=== PATIENT | male | born 1960 | race Caucasian/White ===

== ENCOUNTER 2023-03-21 21:14 | Emergency (ER) | payer MEDICAID, SELFPAY ==
--- NOTE | ~2023-03-21 | CT_ITS ---
EXAMINATION: CT HEAD WITHOUT CONTRAST CLINICAL INFORMATION: Scalp laceration. COMPARISON: 01/31/2010 TECHNIQUE: Multidetector volumetric imaging of the head was performed without intravenous contrast material. This CT examination was performed using dose optimization techniques as appropriate, variously including the following: *Automated exposure control *Adjustment of mA and/or kV according to patient size (this includes techniques or standardized protocols for targeted exams where dose is matched to indication/reason for exam; i.e. extremities or head) *Use of iterative reconstruction technique Dose: 657 mGy-cm FINDINGS: There is no evidence of acute intracranial hemorrhage or territorial infarction. No abnormal mass-effect or midline shift is seen. Orta to white matter differentiation is well preserved. No extra axial fluid collections. The ventricles are normal in size and configuration. There is no abnormal attenuation within the brain parenchyma. No acute osseous findings. There is a shallow scalp laceration over the right parietal bone in the parasagittal region. No appreciable hematoma. Mild mucosal thickening in the ethmoid sinuses. CT/CT head/brain wo IV con IMPRESSION: No acute intracranial pathology. Shallow right parietal scalp laceration. No acute osseous findings.
[2023-03-21 21:34] VITALS: BP 148/93; PULSE 99; RESP 18; TEMP 36.7; O2SAT 93; BMI 29.8
--- NOTE | 2023-03-21 22:50 | ED.HEATRA ---
HPI - Head Injury General Chief complaint: Head Injury Stated complaint: hit head on shelf, split Time Seen by Provider: 03/21/23 22:14 Source: patient Mode of arrival: ambulatory Limitations: language barrier History of Present Illness HPI Narrative: Patient is a 62 year old male who presents emergency department his for evaluation of a laceration to the scalp after head injury. He states he was doing laundry when he stood up suddenly and struck his head on a shelf above that was metal sustaining laceration. He denies any loss of consciousness or use of anticoagulants. He does report a headache. No active bleeding. Last tetanus in 2018. Denies dizziness, lightheadedness, vision changes, neck pain, neck stiffness, numbness or tingling of the extremities Related Data Allergies Allergy/AdvReac Type Severity Reaction Status Date / Time No Known Allergies Allergy Unverified 11/07/19 16:20 Review of Systems Review of Systems: Yes all other systems are reviewed and are negative PMFSH Past Medical History Attestation statement: The following information was validated with the patient. Source: old records reviewed Social History Social History Advance Directives: No Advance Directives Information Provided: No Physical Exam Vital Signs: Vital Signs: Last Vital Signs Temp 98.0 F 03/21/23 21:34 Pulse 99 03/21/23 21:34 Resp 18 03/21/23 21:34 BP 148/93 H 03/21/23 21:34 Pulse Ox 93 03/21/23 21:34 O2 Del Method Room Air 03/21/23 21:34 BMI result Body Mass Index 29.8 Appearance: Alert.?Oriented to person, place and time. No acute distress.?Normal affect. Head: Normocephalic parietal scalp lack 8 cm, linear, edges well approximated, scant active bleeding Eyes: Pupils equal, round and reactive to light. EOMI. Conjunctiva and sclera normal? No Hamilton sign noted. No raccoon eyes noted ENT: No septal hematoma, nares patent bilaterally. External auditory canal normal tympanic membrane pearly chaney and intact bilaterally. Dentition normal, no fractured teeth. No lesions or lacerations of oropharynx. Uvula midline. Moist mucous membranes. Neck: Normal inspection.? Neck supple.??No palpable tenderness, step-off, deformities. CVS: Heart sounds normal. Normal heart rate and rhythm.? Pulses normal.?? Respiratory: No respiratory distress.? Lung sounds clear to auscultation bilaterally?? Abdomen: Soft and non-tender. Normoactive bowel sounds. ?? Skin: Skin warm and dry.? Normal skin color.? Normal skin turgor.?? Extremities: No lower extremity edema.? Neuro: Moves all extremities spontaneously. Sensation intact bilaterally. CN II-XII intact. No focal neuro deficits. Medications Administered Discontinued Medications Generic Name Dose Route Start Last Admin Trade Name Freq PRN Reason Stop Dose Admin Diphtheria/Tetanus/Acell Pertussis 0.5 ml 03/21/23 22:51 03/21/23 23:03 Diphth,Pertus(Acell),Tet Adult 0.5 Ml Syringe IM 03/21/23 22:52 0.5 ml .ONCE ONE Administration Medical Decision Making Medical Decision Making MDM Narrative: Patient is a 62-year-old male who presents emergency department for evaluation after head injury with laceration to the scalp as per HPI/physical exam portion of this note. No focal neurological deficits upon examination, CT of the head reveals no acute intracranial abnormality. Tdap was updated. Scalp laceration repair with isiah, please see procedural portion of this note. Discussed strict return precautions, worrisome signs and symptoms that would warrant re-evaluation, stable for discharge. Differential Diagnosis Differential Diagnoses: The differential diagnosis associated with the presentation includes (Laceration, uncontrolled bleeding, hematoma, SDH, ICH, fracture) Admission/Observation Consideration of admission/observation: Escalation of care including admission/observation considered (See narrative above) Independent Interpretation I performed an independent interpretation of an: CT Scan Radiology Impression Discussion of test interpretation with radiology: I have reviewed the radiologist's reading. Radiologist Impression: CT/CT head/brain wo IV con IMPRESSION: No acute intracranial pathology. Shallow right parietal scalp laceration. No acute osseous findings. Independent Historian Clinical information obtained from an independent historian. History obtained from or confirmed by: Spouse (Present who confirms history) External Record Review External record reviewed: Outpatient record Prescription Management I considered prescription management with: Pain Medication (Acetaminophen/ibuprofen) Procedures Laceration Laceration 1: Site: scalp Size (cm): 8 Description: linear Depth: simple, single layer Pre-repair: wound explored, irrigated extensively and deep structures intact Skin layer closed with: other ([place]; 6) Discharge Plan Discharge Clinical Impression: Acute head injury without loss of consciousness Qualifiers: Encounter type: initial encounter Qualified Code(s): S09.90XA - Unspecified injury of head, initial encounter Laceration of scalp Qualifiers: Encounter type: initial encounter Qualified Code(s): S01.01XA - Laceration without foreign body of scalp, initial encounter Patient Disposition: Home, Self-Care Instructions: Laceration (ED), Head Injury (ED) Additional Instructions: Six isiah will need to be removed from the scalp in 7-10 days. You may contact your primary care provider to schedule follow-up for removal or return back to emergency department for removal. You can take ibuprofen 200 mg, 3 tablets (600mg) every 6-8 hours as needed for pain, in addition to Tylenol 500 mg, 2 tablets (1,000mg) every 4-6 hours as needed for pain, but not to exceed 3 doses daily (3,000mg).? Return back to emergency department any new or worsening symptoms or concerns such as severe worsening headache, persistent dizziness/light headedness, nausea with persistent vomiting, confusion, unsteady walking. Referrals: Lilli Brady MD [Primary Care Provider] -
[2023-03-21] MEDS: Diphth,Pertus(ACell),Tet Adult 0.5 ML SYRINGE IM (23:03)
--- NOTE | 2023-03-21 23:06 | PC.NURSE ---
tdap given left deltoid, VIS given, pt tolerated well.
[2023-03-22 00:30] VITALS: BP 153/81; PULSE 81; RESP 18; TEMP 36.5; O2SAT 97
[2023-03-22] MEDS: Acetaminophen 325 MG TABLET 975 MG PO (00:31)
== END 2023-03-22 00:34 | disposition home or self-care (01) ==
PROVIDERS: Emergency Provider Emergency Medicine; PCP Internal Medicine
DX: S00.01XA Abrasion of scalp, initial encounter (principal); R51.9 Headache, unspecified; Y29.XXXA Contact with blunt object, undetermined intent, initial encounter; Y93.E2 Activity, laundry; Y92.009 Unspecified place in unspecified non-institutional (private) residence as the place of occurrence of the external cause; Y99.8 Other external cause status; Z23 Encounter for immunization
CPT/HCPCS: 12034; 70450; 90471; 90715; 99283; 99284

== ENCOUNTER 2023-03-28 12:07 | Emergency (ER) | payer MEDICAID, SELFPAY ==
[2023-03-28 12:38] VITALS: BP 128/89; PULSE 95; RESP 18; TEMP 37.1; O2SAT 96
--- NOTE | 2023-03-28 12:38 | ED.GENADULT ---
HPI - General Adult General Chief complaint: General Medical Stated complaint: Suture Removal Time Seen by Provider: 03/28/23 12:43 Source: patient Mode of arrival: ambulatory Limitations: no limitations History of Present Illness HPI narrative: Isiah placed to head on March 21. Here for removal. No complaints. Related Data Allergies Allergy/AdvReac Type Severity Reaction Status Date / Time No Known Allergies Allergy Verified 03/28/23 12:39 Review of Systems Review of Systems: Yes all other systems are reviewed and are negative Constitutional: Constitutional: Reports no additional constitutional complaints, Denies body ache(s), Denies chills, Denies fever(s), Denies headache(s) and Denies weakness Eyes: Eyes: Reports no additional eye complaints and Denies change in vision ENT: Reports system reviewed and no additional complaints, except as documented, Denies dizziness, Denies headache(s), Denies nasal congestion, Denies nasal discharge and Denies neck pain Cardiovascular: Cardiovascular: Reports no additional cardiovascular complaints, Denies chest pain, Denies leg edema and Denies dyspnea Respiratory: Respiratory: Reports no additional respiratory complaints, Denies cough and Denies dyspnea Gastrointestinal: Gastrointestinal: Reports no additional gastrointestinal complaints, Denies abdominal pain, Denies diarrhea, Denies nausea and Denies vomiting Genitourinary: Genitourinary: Denies urinary incontinence Musculoskeletal: Musculoskeletal: Reports no additional musculoskeletal complaints, Denies back pain, Denies arthralgias, Denies joint swelling, Denies neck pain, Denies numbness and Denies tingling Integumentary/Breasts: Skin/Breast: Reports system reviewed and no additional complaints, except as docu and Denies rash Neurologic: Reports system reviewed and no additional complaints, except as documented, Denies dizziness, Denies headache(s), Denies numbness, Denies tingling and Denies weakness [facility] Past Medical History Attestation statement: The following information was validated with the patient. Source: old records reviewed and nursing notes reviewed Social History Social History Advance Directives: No Physical Exam ED Vital Signs: Vital Signs - 24 hr 03/28/23 12:38 Temperature 98.8 F Pulse Rate 95 Respiratory Rate 18 Blood Pressure 128/89 Pulse Oximetry 96 Oxygen Delivery Method Room Air BMI result Body Mass Index 30.0 Const General: cooperative, healthy appearing, comfortable and no acute distress Orientation/consciousness: patient oriented x3 Limitations: no limitations HENMT Head: Yes normal to inspection Head images: 1. [place] present #6. Edges approximated . no redness/drainage/swelling noted Eyes General: appearance normal, both eyes and all related structures Neck Neck: Yes normal visual inspection Chest Chest palpation & inspection: normal inspection of the chest Resp Effort & Inspection: normal respiratory effort Skin General skin exam: no rashes or lesions noted Neuro General: patient oriented x3 and moves all extremities Cognition (Neuro): normal cognition Gait exam (Neuro): Normal gait present Procedures Procedure Narrative Procedure Narrative: 6 isiah removed from right scalp-edges approximate, patient tolerated well, no signs of infection Medical Decision Making Medical Decision Making MDM Narrative: [place] placed to head on March 21. Here for removal. No complaints. Site is normal with no signs of infection-see procedure note for removal Differential Diagnosis Differential Diagnoses: The differential diagnosis associated with the presentation includes staple removal wound infection External Record Review External record reviewed: Outside ED record Prescription Management I considered prescription management with: Antibiotic Discharge Plan Discharge Clinical Impression: Removal of isiah Patient Disposition: Home, Self-Care Instructions: Stitches Removal (ED) Referrals: Lilli Brady MD [Primary Care Provider] - 1 week Interventions: ED Discharge Assessment Last Done: 03/28/23 12:45 Discharge Date/Time: 03/28/23 12:46
== END 2023-03-28 12:46 | disposition home or self-care (01) ==
LOC: HO.ED 12:45
PROVIDERS: Emergency Provider Emergency Medicine; PCP Internal Medicine
DX: Z48.02 Encounter for removal of sutures (principal)
CPT/HCPCS: 99282

== ENCOUNTER 2023-04-27 14:54 | Outpatient (REF) | payer MEDICARE, MEDICAID, SELFPAY ==
--- NOTE | ~2023-04-27 | XR_ITS ---
EXAMINATION: XR HIP, RIGHT CLINICAL INFORMATION: Right hip pain. COMPARISON: CT abdomen and pelvis of January 17, 2022. TECHNIQUE: Two views of the right hip. FINDINGS: Redemonstration of sclerotic focus overlying the intertrochanteric region, possibly a bone island. Small calcifications in the right hemipelvis are likely vascular. Moderate degenerative changes in the right hip with loss of the joint space. Mild degenerative changes in the right sacroiliac joint. XR/XR hip RT min 2V IMPRESSION: 1. Moderate degenerative changes in the right hip. 2. Redemonstration of sclerotic focus overlying the intertrochanteric region, possibly a bone island. 3. Additional imaging with CT scan or MRI should be considered for better visualization if there is clinical concern for fracture or other underlying pathology.
== END 2023-04-27 14:55 | disposition home or self-care (01) ==
LOC: HO.XRAY 14:54
PROVIDERS: PCP Internal Medicine; Visit Provider Internal Medicine
DX: M25.551 Pain in right hip (principal)
CPT/HCPCS: 73502

== ENCOUNTER 2023-04-28 08:42 | Outpatient (REF) | payer MEDICARE, MEDICAID, SELFPAY ==
[2023-04-28 15:08] LABS: MANUAL DIFF FLAG NO
[2023-04-28 15:20] LABS: Basophils Absolute Auto 0.1 X10*3/uL (0.0-0.2); Basophils Percent Auto 0.9 % (0-2); Eosinophils Absolute Auto 0.2 X10*3/uL (0.0-0.4); Eosinophils Percent Auto 3.5 % (0-4); Hematocrit 44.9 % (42.0-52.0); Imm Gran Abs Auto 0.01 X10*3/uL (0.00-0.03); Imm Gran Pct Auto 0.2 % (0.0-0.4); Lymphocytes Absolute Auto 2.4 X10*3/uL (1.2-4.9); Lymphocytes Percent Auto 42.5 % (20-40); Mean Corpuscular HGB Conc 33.4 g/dl (31.0-36.0); Mean Corpuscular Hemoglobin 31.4 pg (27.0-33.0); Mean Corpuscular Volume 93.9 fL (80.0-98.0); Monocytes Absolute Auto 0.8 X10*3/uL (0.1-1.2); Monocytes Percent Auto 13.7 % (2-11); Neutrophils Absolute Auto 2.2 x10*3/uL (2.0-8.3); Neutrophils Percent Auto 39.2 % (45-73); Platelet Count 211 X10*3/uL (160-400); Red Blood Count 4.78 X10*6/uL (4.60-5.80); Red Cell Distribution Width 13.3 % (11.0-16.0); White Blood Count 5.7 X10*3/uL (4.8-10.8)
[2023-04-28 15:56] LABS: Alanine Aminotransferase 28 U/L (0-40); Albumin Level 4.1 g/dL (3.5-5.0); Alkaline Phosphatase 49 U/L (39-117); Anion Gap 10 (12-20); Aspartate Amino Transferase 23 U/L (5-37); Bilirubin Total 0.7 mg/dL (0.0-1.0); Blood Urea Nitrogen 12 mg/dL (9-16); Calcium 9.4 mg/dL (8.4-10.2); Carbon Dioxide 29 mmol/L (22-29); Chloride 104 mmol/L (96-108); Cholesterol 202 mg/dL (<200); Estimated Glomerular Filt Rate > 60; Glucose Random 63 mg/dL (60-115); HDL Cholesterol 59 mg/dL (>40); LDL Cholesterol Calculated 119 mg/dL (<100); Sodium 139 mmol/L (135-145); Total Protein 7.6 g/dL (6.5-8.0); Triglycerides 122 mg/dL (<150)
[2023-04-28 16:11] LABS: TSH reflex Free T4 3.96 uIU/mL (0.32-4.0)
== END 2023-04-28 08:43 | disposition home or self-care (01) ==
LOC: HO.CHCLDS 08:42
PROVIDERS: Visit Provider Internal Medicine
DX: Z00.00 Encounter for general adult medical examination without abnormal findings (principal); E78.00 Pure hypercholesterolemia, unspecified; K52.9 Noninfective gastroenteritis and colitis, unspecified; K76.0 Fatty (change of) liver, not elsewhere classified
CPT/HCPCS: 36415; 80053; 80061; 84443; 85025

== ENCOUNTER 2024-05-07 15:22 | Outpatient (REF) | payer MEDICARE, MEDICAID, SELFPAY ==
[2024-05-07 18:40] LABS: MANUAL DIFF FLAG NO
[2024-05-07 19:06] LABS: Basophils Absolute Auto 0.1 X10*3/uL (0.0-0.2); Basophils Percent Auto 0.8 % (0-2); Eosinophils Absolute Auto 0.1 X10*3/uL (0.0-0.4); Hematocrit 43.7 % (42.0-52.0); Hemoglobin 14.6 g/dl (14.0-18.0); Imm Gran Abs Auto 0.01 X10*3/uL (0.00-0.03); Imm Gran Pct Auto 0.2 % (0.0-0.4); Lymphocytes Absolute Auto 2.1 X10*3/uL (1.2-4.9); Lymphocytes Percent Auto 33.3 % (20-40); Mean Corpuscular HGB Conc 33.4 g/dl (31.0-36.0); Mean Corpuscular Hemoglobin 30.5 pg (27.0-33.0); Mean Corpuscular Volume 91.2 fL (80.0-98.0); Mean Platelet Volume 11.1 fL (9.4-12.4); Monocytes Absolute Auto 0.9 X10*3/uL (0.1-1.2); Monocytes Percent Auto 14.4 % (2-11); Neutrophils Absolute Auto 3.1 x10*3/uL (2.0-8.3); Neutrophils Percent Auto 49.3 % (45-73); Platelet Count 219 X10*3/uL (160-400); Red Blood Count 4.79 X10*6/uL (4.60-5.80); White Blood Count 6.4 X10*3/uL (4.8-10.8)
[2024-05-07 19:29] LABS: Alanine Aminotransferase 31 U/L (0-40); Albumin Level 4.2 g/dL (3.5-5.0); Alkaline Phosphatase 50 U/L (39-117); Anion Gap 13 (12-20); Aspartate Amino Transferase 29 U/L (5-37); Bilirubin Total 0.4 mg/dL (0.0-1.0); Blood Urea Nitrogen 18 mg/dL (9-16); Calcium 9.5 mg/dL (8.4-10.2); Carbon Dioxide 26 mmol/L (22-29); Chloride 105 mmol/L (96-108); Cholesterol 190 mg/dL (<200); Estimated Glomerular Filt Rate > 60; Glucose Random 98 mg/dL (60-115); HDL Cholesterol 57 mg/dL (>40); LDL Cholesterol Calculated 93 mg/dL (<100); Potassium 4.1 mmol/L (3.3-5.1); Sodium 140 mmol/L (135-145); Total Protein 8.4 g/dL (6.5-8.0); Triglycerides 204 mg/dL (<150)
[2024-05-08 08:46] LABS: ~HepC Num1 0.13 S/CO (0.00-0.79); ~Hepatitis C Antibody Nonreactive (Nonreactive)
== END 2024-05-07 15:23 | disposition home or self-care (01) ==
LOC: HO.CHCLDS 15:22
PROVIDERS: Visit Provider Internal Medicine
DX: I10 Essential (primary) hypertension (principal); E78.00 Pure hypercholesterolemia, unspecified; Z12.5 Encounter for screening for malignant neoplasm of prostate
CPT/HCPCS: 36415; 80053; 80061; 84153; 84443; 85025; 86803

== ENCOUNTER 2025-01-13 13:29 | Outpatient (REF) | payer MEDICARE, MEDICAID, SELFPAY ==
--- NOTE | ~2025-01-13 | XR_ITS ---
EXAMINATION: XR CHEST CLINICAL INFORMATION: 64 y.o male with chornic cough COMPARISON: None available. TECHNIQUE: 2 views of the chest were obtained. FINDINGS: No significant abnormality is noted involving the heart, lungs, mediastinum, bony thorax or soft tissues. XR/XR chest 2V IMPRESSION: No acute disease Electronically signed by: Jesse Mccord MD 01/13/2025 03:20 PM [facility]
--- OUTSIDE RECORDS SUMMARY | 2025-01-13 13:00 | XMS_ITS | Encounter Summary ---
Author Organization [employer] Address [address] [facility] 7 [place] [address] Care Team Providers Care Evp Operations Name Role Phone Lilli Brady MD Primary Care Provider [phone] Reason for Visit * Reason Comments sick sick Encounter Details Date Type Department Care Team ([facility] st Contact Info) Description 01/13/2025 1:00 PM EST Office Visit [facility] MED[facility] [address] [place], [place] [id number] [facility] [address] [place] [address] Allergic cough (Primary Dx); Chronic cough Social History Tobacco Use Types Packs/Day Years Used Date Smoking Tobacco: Never Passive Smoke Exposure: Never Smokeless Tobacco: Never Tobacco Cessation:Counseling Given: Not Answered Alcohol Use Standard Drinks/Week Comments Never 0 (1 standard drink = 0.6 oz pur e alcohol) Depression Answer Date Recorded Patient Health Questionnaire-9 Score 0 05/07/2024 Patient Health Questionnaire-9 Score 0 05/07/2024 Last PHQ-9: Questionnaire Data Not on file 0 05/07/2024 Housing Stability Answer Date Recorded What is your housing situation today? I have litzy wheeler 05/07/[address] you li ve. Do you have problems with any of the following? None of the above 05/07/2024 Food Insecurity Answer Date Recorded Within the past 12 months, y ou worried that your food would run out before you got money to buy more: Never True 05/07/2024 Within the past 12 months,th e food you bought just didn't last and you didn't have enough money to get more: Never True Transportation Answer Date Recorded In the past 12 months, has l ack of transportation kept you from medical appts, meetings, work or from getting things needed for daily living? No 05/07/2024 Utilities Answer Date Recorded In the past 12 months, has t he electric, gas, oil or water company threatened to shut off services in your home? No 05/07/2024 Depression Answer Date Recorded Patient Health Questionnaire-2 Score 0 05/07/2024 Internet Access Answer Date Recorded Internet Access Q1 Yes 05/07/2024 Internet Access Q2 Not on file 05/07/2024 Sex and Gender Information Value Date Recorded Sex Assigned at Male 12/20/2021 10:19 AM EDT Legal Sex Male 10:19 AM EDT Gender Identity Male 12/20/2021 10:19 AM EDT Sexual Orientation Straight 12/20/2021 10 :19 AM EDT documented as of this encounter Last Filed Vital Signs Vital Sign Reading Time Taken Comments Blood Pressure 130/88 01/13/2025 12:59 PM EST Pulse 98 01/13/2025 12:59 PM EST Temperature 36.4 C (97.6 F) 01/13/2025 12:59 PM EST Respiratory Rate 20 01/13/2025 12:59 PM EST Oxygen Saturation 97% 01/13/2025 12:59 PM EST Inhaled Oxygen Concentration - - Weight 95.9 kg (211 lb 6.4 oz) 01/13/2025 12:59 PM EST Height 175.3 cm (5' 9 ) 01/13/2025 12:59 PM EST Body Mass Index 31.22 01/13/2025 12:59 PM EST documented in this encounter Plan of Treatment Upcoming Encounters Date Type Department Care Team (Late st Contact Info) Description 06/23/2025 1:30 PM EDT Office Visit [facility] D[facility] [address] [place] [address] [facility] [address] [place] [address] documented as of this encounter Procedures Procedure Name Priority Date/Time Associated Diagnosis Comments XR CHEST 2 VIEWS Routine 01/13/2025 2:38 PM EST Chronic cough documented in this encounter Results * XR Chest 2 Views (01/13/2025 2:38 PM EST) Anatomical Region Laterality Modality Chest Radiographic Codi ging 01/13/2025 2:38 PM EST Narrative 01/13/2025 3:23 PM EST [address] [address] XRay Report Signed Patient: Jensen Davis MR#: [id number] : 1960 Acct:[id number] Age/Sex: 64 / M ADM Date: 01/13/25 Loc: [facility] Attending Dr: Charleen ESCOTOP Ordering Physician: Charleen Bear Date of Service: 01/13/25 Procedure(s): XR chest 2V Accession Number(s): [id number] cc: Lilli Brady MD; HosfordCharleen WIND INSTRUMENT REPAIRER Reason for Exam: 64 y.o male with chornic cough EXAMINATION: XR CHEST CLINICAL INFORMATION: 64 y.o male with chornic cough COMPARISON: None available. TECHNIQUE: 2 views of the chest were obtained. FINDINGS: No significant abnormality is noted involving the heart, lungs, mediastinum, bony thorax or soft tissues. XR/XR chest 2V IMPRESSION: No acute disease Electronically signed by: Jesse Mccord MD 01/13/2025 03:20 PM EST Dictated By: Jesse Mccord MD Signed By: <Electronically signed by Jesse Mccord MD in OV> 01/13/25 1520 DD/ 1438 TD/TT: 01/13/25 1500 Braided Band Assembler: Procedure Note Donotuseinterpreter, Image - 01/13/2025 [facility] [address] [place] [address] XRay Report Signed Patient: Jensen DavisMR#: [id number] : 1960cct:[id number] Age/Sex: 64 / MADM Date: 01/13/25 Loc: [facility] Attending Dr: Charleen Bear WIND INSTRUMENT REPAIRER Ordering Physician: [facility] Date of Service: 01/13/25 Procedure(s): XR chest 2V Accession Number(s): [id number] cc: Lilli Brady MD; [facility] Reason for Exam: 64 y.o male with chornic cough EXAMINATION: XR CHEST CLINICAL INFORMATION: 64 y.o male with chornic cough COMPARISON: None available. TECHNIQUE: 2 views of the chest were obtained. FINDINGS: No significant abnormality is noted involving the heart, lungs, mediastinum, bony thorax or soft tissues. XR/XR chest 2V IMPRESSION: No acute disease Electronically signed by: Jesse Mccord MD 01/13/2025 03:20 PM EST RP Dictated By: Jesse Mccord MD Signed By: <Electronically signed by Jesse Mccrod MD in OV> 01/13/25 1520 DD/ 1438 TD/TT: 01/13/25 1500 Braided Band Assembler: [facility] IMG XR PROCEDURES Final Resul t documented in this encounter Visit Diagnoses Diagnosis Allergic cough- Primary Cough Chronic cough Cough documented in this encounter Additional Health Concerns Assessment Noted Time PHQ-9 Depression Total Score: 0 05/08/19 2:53 PM EDT documented as of this encounter Care Teams Evp Operations Relationship Specialty Start Date End Date Lilli Brady MD [address] [place] [address] PCP - General Internal Medicine 03/30/17 documented as of this encounter
--- OUTSIDE RECORDS SUMMARY | 2025-01-13 18:13 | XMS_ITS | Encounter Summary ---
Author Organization [employer] Address [address] [facility] 7t [place] [address] Care Team Providers Care Rn Mobile Name Role Phone Lilli Brady MD Primary Care Provider [phone] Encounter Details Date Type Department Care Team (Latest Contact Info) Description 01/13/2025 Travel Social History Tobacco Use Types Packs/Day Years Used Date Smoking Tobacco: Never Passive Smoke Exposure: Never Smokeless Tobacco: Never Alcohol Use Standard Drinks/Week Comments Never 0 [...] AM EDT documented as of this encounter Plan of Treatment Upcoming Encounters Date Type Department Care Team (Late st Contact Info) Description 06/23/2025 1:30 PM EDT Office Visit [facility] ADULT D[facility] [address] [place] [address] Dru, Luiza [address] [place] [address] documented as of this encounter Visit Diagnoses Not on filedocumented in this encounter Additional Health Concerns Assessment Noted Time PHQ-9 Depression Total Score: 0 05/08/19 25 2:53 PM EDT documented as of this encounter Care Teams Rn Mobile Relationship Specialty Start Date End Date Lilli Brady MD [address] [place] [address] PCP - General Internal Medicine 03/30/17 documented as of this encounter
--- OUTSIDE RECORDS SUMMARY | 2025-01-13 18:13 | XMS_ITS | Encounter Summary ---
Author Organization [employer] Address [address] [place] [address] 7 [place] [address] Care Team Providers Care Machine Precision Engraver Name Role Phone Lilli Brady MD Primary Care Provider Encounter Details Date Type Department Care Team (Latest Contact Info) Description 01/10/2020 Abstract [facility] CONVERSIONS Dental, Provider, DDS Social History Tobacco Use Types Packs/Day Years Used Date Smoking Tobacco: Never Assessed Sex and Gender Information Value Date Recorded Sex Assigned at Male 12/20/2021 10:19 AM EDT Legal Sex Male 10:19 AM EDT Gender Identity Male 12/20/2021 10:19 AM EDT Sexual Orientation Straight 12/20/2021 10 :19 AM EDT documented as of this encounter Plan of Treatment Upcoming Encounters Date Type Department Care Team (Late st Contact Info) Description 06/23/2025 1:30 PM EDT Office Visit [facility] ADULT DENTAL [address] [place] [address] Dru, Luiza [address] [place] [address] documented as of this encounter Visit Diagnoses Not on filedocumented in this encounter Care Teams Machine Precision Engraver Relationship Specialty Start Date End Date Lilli Brady MD [address] [place] [address] PCP - General Internal Medicine 03/30/17 documented as of this encounter
--- OUTSIDE RECORDS SUMMARY | 2025-01-13 18:13 | XMS_ITS | Encounter Summary ---
Author Organization [employer] Address [address] [place] [address] Care Team Providers Care Psychiatric Aide Instructor Name Role Phone Lilli Brady MD Primary Care Provider [phone] Reason for Visit * Reason Onset Date Comments call back 06/14/2022 Encounter Details Date Type Department Care Team ([facility] st Contact Info) Description 06/14/2022 Telephone [facility] [address] [place] [address] Lilli Brady MD [address] [place] [phone] call back Social History Tobacco Use Types Packs/Day Years Used Date Smoking Tobacco: Never Passive Smoke Exposure: Never Smokeless Tobacco: Never Alcohol Use Standard Drinks/Week Comments Never 0 (1 standard drink = 0.6 oz pur e alcohol) Depression Answer Date Recorded Patient Health Questionnaire-9 Score 0 04/21/2022 Depression Answer Date Recorded Patient Health Questionnaire-2 Score 0 04/21/2022 Sex and Gender Information Value Date Recorded Sex Assigned at Male 12/20/2021 10:19 AM EDT Legal Sex Male 10:19 AM EDT Gender Identity Male 12/20/2021 10:19 AM EDT Sexual Orientation Straight 12/20/2021 10 :19 AM EDT documented as of this encounter Miscellaneous Notes * Telephone Encounter - Andre Chirag - 06/14/2022 9:23 AM EDT Tc from pt calling to give us the information of Dr Dann Bonilla the gastrologist with [facility] NPI# [id number] Please contact pt at [phone] documented in this encounter Plan of Treatment Upcoming Encounters Date Type Department Care Team (Late st Contact Info) Description 06/23/2025 1:30 PM EDT Office Visit [facility] ADULT DENTAL [address] [place] [address] Dru, Luiza [address] [place] [address] documented as of this encounter Visit Diagnoses Diagnosis Inflammatory bowel disease- Primary Other and unspecified noninfectious gastroenteritis and colitis documented in this encounter Additional Health Concerns Assessment Noted Time PHQ-9 Depression Total Score: 0 04/22/19 23 1:23 PM EST documented as of this encounter Care Teams Psychiatric Aide Instructor Relationship Specialty Start Date End Date Lilli Brady MD [address] [place] [id number] PCP - General Internal Medicine 03/30/17 documented as of this encounter
--- OUTSIDE RECORDS SUMMARY | 2025-01-13 18:13 | XMS_ITS | Encounter Summary ---
Author Organization [employer] Address [address] [facility] 7 [place] [address] Care Team Providers Care Loading Machine Tool Setter Name Role Phone Lilli Brady MD Primary Care Provider [phone] Reason for Visit * Reason Onset Date Comments Nurse Triage 01/13/2025 Encounter Details Date Type Department Care Team ([facility] st Contact Info) Description 01/13/2025 Telephone [facility] [address] [place], [place] [phone] iLlli Brady MD [address] [place] [address] Nurse Triage Social History Tobacco Use Types Packs/Day Years [...] encounter Miscellaneous Notes * Telephone Encounter - Mariaelena Shah RN - 01/13/2025 10:51 AM EST Telephone call to pt who gave verbal consent to speak with family member. Pt reports dry cough x8 weeks. It occurs at night and during the day, sometimes he also has sweating and mild runny eyes/nosebut denies having been sick, denies fever, headache, congestion. Denies phlegm. No new medications in last 8 weeks. Has tried OTC cough syrup but no relief. Scheduled appt today in [place] for provider evaluation. Educated on reasons to call back, educated to try cough drops, stay well hydrated, use humidifier. Pt verbalized understanding, no further questions. Protocol Used: Cough (Adult) Protocol-Based Disposition: See in Office or Video Visit within 3 Days Positive Triage Question: * Cough has been present for > 3 weeks * All higher-acuity triage questions were negative. Care Advice Discussed: * Cough Medicines * Coughing Spells * Prevent Dehydration * Humidifier * Reasons To Call Back - Difficulty breathing - Cough lasts more than 3 weeks - Fever lasts more than 3 days - You become worse * Telephone Encounter - Christie Umanzor - 01/13/2025 9:39 AM EST Symptom: Dry Cough Outcome: Schedule an appointment to be seen within 24 hours Reason: Caller denied all higher acuity questions The caller accepted this outcome. PCP DR. Brady documented in this encounter Plan of Treatment Upcoming Encounters Date Type Department Care Team (Late st Contact Info) Description 06/23/2025 1:30 PM EDT Office Visit [facility] [address] [place], [place] [phone] Dru, Luiza [address] [place] [address] documented as of this encounter Visit Diagnoses Not on filedocumented in this encounter Additional Health Concerns Assessment Noted Time PHQ-9 Depression Total Score: 0 05/08/19 25 2:53 PM EDT documented as of this encounter Care Teams Loading Machine Tool Setter Relationship Specialty Start Date End Date Lilli Brady MD [address] [place] [address] PCP - General Internal Medicine 03/30/17 documented as of this encounter
--- OUTSIDE RECORDS SUMMARY | 2025-01-13 18:13 | XMS_ITS | Encounter Summary ---
Author Organization [employer] Address 75 [facility] 7t [place] [address] Care Team Providers Care Novelty Balloon Assembler And Packer Name Role Phone Lilli Brady MD Primary Care Provider [phone] Reason for Visit * Reason Comments Med Refill Encounter Details Date Type Department Care Team (Late st Contact Info) Description 02/23/2022 Refill [facility] [address] [place] [address] Neela Valiente DDS [address] [place] [address] Periapical abscess without sinus Social History Tobacco Use Types Packs/Day Years Used Date Smoking Tobacco: Never Passive Smoke Exposure: Never Smokeless Tobacco: Never Alcohol Use Standard Drinks/Week Comments Never 0 (1 standard drink = 0.6 oz pur e alcohol) Sex and Gender Information Value Date Recorded Sex Assigned at Male 12/20/2021 10:19 AM EDT Legal Sex Male 10:19 AM EDT Gender Identity Male 12/20/2021 10:19 AM EDT Sexual Orientation Straight 12/20/2021 10 :19 AM EDT COVID-19 Exposure Response Date Recorded In the last 10 days, have yo u been in contact with someone who was confirmed or suspected to have Coronavirus/COVID-19? No / Unsure 02/18/2022 12:59 PM EST documented as of this encounter Miscellaneous Notes * Telephone Encounter - Neela Valiente DDS - 02/23/2022 10:10 AM EST Approving, but needs appt for additional refills. documented in this encounter Plan of Treatment Upcoming Encounters Date Type Department Care Team (Late st Contact Info) Description 06/23/2025 1:30 PM EDT Office Visit [facility] [address] [place] [address] Dru, Luiza [address] [place] [address] documented as of this encounter Visit Diagnoses Diagnosis Periapical abscess without sinus documented in this encounter Care Teams Novelty Balloon Assembler And Packer Relationship Specialty Start Date End Date Lilli Brady MD [address] [place] [address] PCP - General Internal Medicine 03/30/17 documented as of this encounter
--- OUTSIDE RECORDS SUMMARY | 2025-01-13 18:13 | XMS_ITS | Clinical Summary ---
Author Organization [employer] Address [address] [place] [address] 7t [place] [address] Care Team Providers Care Drilling Contractor Name Role Phone Lilli Brady MD Primary Care Provider [phone] Allergies No known active allergies Medications acetaminophen (Tylenol 8 Hour) 650 MG ER tabletIndicatio ns:Periapical abscess without sinus TAKE 1 TABLET BY MOUTH EVERY 8 HOURS NEEDED FOR PAIN DONT CRUSH CHEW SPIT 15 tablet 02/23/19 23 Active Additional Information Patient not taking.Reported on 03/19/2024 azaTHIOprine (Imuran) 50 MG tablet Take 100 mg by mouth in the morning. 02/12/20 22 Active chlorhexidine (Hibiclens) 4 % external liquid Use three times weekly 04/19/19 20 Active Lactobacillus Rhamnosus, GG, (RA Probiotic Digestive Care) capsule at bed time. 11/01/19 19 Active mesalamine (Asacol) 800 MG EC tablet Take 1 tablet by mouth every 8 (eight) hours. Active triamcinolone (Kenalog) 0.1 % cream Apply topically every 12 (twelve) hours. 03/30/19 19 Active zoster vaccine-recombi nant adjuvanted (Shingrix) 50 MCG/0.5ML vaccine Inject 0.5 mL into the shoulder, thigh, or buttocks. 04/19/19 20 Active Diclofenac Sodium 1 % gelIndications: Right hip pain To apply to the affected area 4 times a day 100 g 1 04/27/19 24 Active ketoconazole (NIZOral) 2 % shampooIndicati ons:Seborrheic dermatitis apply by topical route 2 time weekly to the affected area(s), lather, leave in place for 5 minutes, and then rinse off with water 120 mL 3 04/27/19 24 Active Additional Information Patient not taking.Reported on 03/19/2024 mupirocin (Bactroban) 2 % ointment apply by topical route 2 times every day to the inside of each nostril with a Q-tip 15 g 04/27/19 Active Additional Information Patient not taking.Reported on 03/19/2024 amLODIPine (Norvasc) 5 MG tabletIndicatio ns:Primary hypertension TAKE 1 TABLET BY MOUTH EVERY DAY IN THE MORNING 90 tablet 3 03/19/19 25 Active simvastatin (Zocor) 20 MG tabletIndicatio ns:Hypercholest erolemia TAKE 1 TABLET BY MOUTH EVERY DAY 90 tablet 1 10/23/19 25 Active fexofenadine (Stephanie) 180 MG tabletIndicatio ns:Allergic cough Take 1 tablet (180 mg) by mouth Once per day. 30 tablet 11 01/14/20 25 026 Active benzonatate (Tessalon) 100 MG capsuleIndicati ons:Chronic cough Take 1 capsule (100 mg) by mouth if needed in the morning, at noon, and at bedtime for cough for up to 7 days. Do not crush or chew. 20 capsule 01/14/20 25 025 Active cetirizine (ZyrTEC) 10 MG tablet Take 1 tablet by mouth at bed time. 07/21/19 22 025 Discontinued Active Problems Problem Noted Date Diagnosed Date Dental plaque 12/23/2024 Localized gingival recession 03/19/2024 Normal oral exam 03/19/2024 Ulnar neuropathy 04/21/2022 Dental calculus 03/31/2022 Benign essential hypertension 03/30/2017 Hypercholesterolemia 03/30/2017 Steatosis of liver 03/30/2017 Inflammatory bowel disease 03/30/2017 Encounters Date Type Department Care Team Description 01/13/2025 1:00 PM EST Office Visit [facility] [address] [place] [address] Charleen Bear FNP Allergic cough (Primary Dx); Chronic cough 01/13/2025 Results Follow-Up [facility] [address] [place], [place] [phone] Charleen Bear FNP XR Chest 2 Views 01/13/2025 Travel 01/13/2025 Telephone [facility] [address] [place], [place] [phone] Lilli Brady MD Nurse Triage 12/23/2024 2:15 PM EST Office Visit [facility] ADULT D[facility] [address] [place], [place] [phone] Luiza Gonsales Localized gingival recession (Primary Dx); Dental plaque 10/31/2024 Orders Only [facility] [address] [place], [place] [phone] ProviderRicardo MD 10/21/2024 Refill [facility] [address] [place], [place] [phone] Lilli Brady MD Hypercholesterolemia from Last 3 Months Immunizations Immunization Administration Dates Next Due Hep B, adult 10/08/2018,05/31/2018,04/30/2018 Influenza High-dose Quadriva lent Preservative Free 12/26/2024 Influenza injectable quadriv alent preservative free 01/11/2022,12/16/2020,01/23/2018 Pfizer Covid-19 Vaccine 12+ 04/22/2020, Pneumococcal Conjugate PCV 20 05/07/2024 Tdap 03/30/2017,12/11/2012 Zoster, Recombinant 08/27/2019,04/19/2019 Social History Tobacco Use Types Packs/Day Years [...] Orientation Straight 12/20/2021 10 :19 AM EDT Last Filed Vital Signs Vital Sign Reading [...] Mass Index 31.22 01/13/2025 12:59 PM EST Plan of Treatment Upcoming Encounters Date Type Department Care Team (Late st Contact Info) Description 06/23/2025 1:30 PM EDT Office Visit [facility]ULT D[facility] [address] [place] [address] Dru, Luiza [address] [place] [address] Health Maintenance Due Date Last Done Comments CT Colonography 1960 FIT DNA/Cologuard 1960 FIT 1960 FOBT 1960 Sigmoidoscopy 1960 Hepatitis A Vaccines (1 of 2 - Risk 2-dose series) 1977 RSV Patients and Patients Aged 60 years or older (1 - Risk 50-74 years 1-dose series) 2008 Dental Oral Exam 09/17/2024 03/19/2024, 03/03/2022 COVID-19 Vaccine ( season) 2024 01/22/2024, 07/04/2021, 12/11/2020, Additional history exists Dental X-Ray: Bitewings 03/20/2025 03/19/19 25, 04/08/2022, 03/03/2022, Additional history exists Alcohol/Substance Use Screening 05/07/2025 05/07/2024 Depression Screening 05/07/2025 05/07/2024, 05/08/19 SDOH Screening 05/07/2025 05/07/2024 Dental Prophylaxis 06/23/2025 12/23/2024, 0 03/19/2024, 03/31/2022 Tobacco Screening 01/13/2026 01/13/2025 Colonoscopy 10/31/2026 10/31/2024, 02/03/2017 Colorectal Cancer Screening 10/31/2026 Dental X-Ray: Full Mouth 03/20/2027 03/19/2024, 11/21 Lipid Panel 05/07/2029 05/07/2024, 0309/2023, 04/22/2022, Additional history exists DTaP/Tdap/Td Vaccines (4 - Td or Tdap) 03/21/2033 03/21/2023, 03/30/2017, 12/11/2012 Hepatitis B Vaccines Completed 10/08/2018, 05/31/2018, 04/30/2018 Zoster Vaccines Completed 08/27/2019, 04/19/2019 Hepatitis C Screening Completed 05/07/2024 Pneumococcal Vaccine: 50+ Years Completed 05/07/2024 Influenza Vaccine Completed 12/26/2024, , 01/22/2024, Additional history exists HIB Vaccines Aged Out No longer eligi ble based on patient's age to complete this topic HPV Vaccines Aged Out No longer eligi ble based on patient's age to complete this topic IPV Vaccines Aged Out No longer eligi ble based on patient's age to complete this topic Meningococcal B Vaccine Aged Out No l onger eligible based on patient's age to complete this topic Meningococcal Vaccine Aged Out No nabil alex eligible based on patient's age to complete this topic RSV under 20 months Aged Out No longe r eligible based on patient's age to complete this topic Rotavirus Vaccines Aged Out No longer eligible based on patient's age to complete this topic Procedures Procedure Name Priority Date/Time Associated Diagnosis Comments XR CHEST 2 VIEWS Routine 01/13/2025 2:38 PM EST Chronic cough CASE PRESENTATION, DETAILED AND EXTENSIVE TREATMENT PLANNING Routine 12/23/2024 2:15 PM EST Localized gingival recession Dental plaque ORAL HYGIENE INSTRUCTIONS Routine 12/23/2024 2:15 PM EST Localized gingival recession Dental plaque PROPHYLAXIS - ADULT Routine 12/23/2024 2 :15 PM EST Localized gingival recession Dental plaque 31 IMPLANT SUPPORTED PORCELAIN/CERAMIC CROWN Routine 12/23/2024 12:00 AM EST HM COLONOSCOPY Routine 10/31/2024 11:59 AM EDT HEPATITIS C AB W/REFL TO HCV RNA, QN, PCR Routine 05/07/2024 3:24 PM EDT Benign essential hypertension Hypercholesterolemi a LIPID PANEL, STANDARD Routine 05/07/2024 3:24 PM EDT Benign essential hypertension Hypercholesterolemi a INTRAORAL - COMPLETE SERIES OF RADIOGRAPHIC IMAGES Routine 03/19/2024 3:00 PM EST Dental calculus Localized gingival recession PERIODIC ORAL EVALUATION - ESTABLISHED PATIENT Routine 03/19/2024 3:00 PM EST from Last 3 Months or Most Recently Relevant to Health Maintenance Results * XR Chest 2 Views (01/13/2025 2:38 PM EST) Anatomical Region Laterality Modality Chest Radiographic Codi ging 01/13/2025 2:38 PM EST Narrative 01/13/2025 3:23 PM EST [address] [address] XRay Report Signed Patient: Jensen Davis MR#: [id number] : 1960 Acct:[id number] Age/Sex: 64 / M ADM Date: 01/13/25 Loc: [facility] Attending Dr: Charleen ESCOTOP Ordering Physician: Charleen Bear Date of Service: 01/13/25 Procedure(s): XR chest 2V Accession Number(s): [id number] cc: Lilli Brady MD; [facility] MACHINE LAY OUT WORKER Reason for Exam: 64 y.o male with chornic cough EXAMINATION: XR CHEST CLINICAL INFORMATION: 64 y.o male with chornic cough COMPARISON: None available. TECHNIQUE: 2 views of the chest were obtained. FINDINGS: No significant abnormality is noted involving the heart, lungs, mediastinum, bony thorax or soft tissues. XR/XR chest 2V IMPRESSION: No acute disease Electronically signed by: Jesse Mccord MD 01/13/2025 03:20 PM [facility] Dictated By: Jesse Mccord MD Signed By: <Electronically signed by Jesse Mccord MD in OV> 01/13/25 1520 DD/ 1438 TD/TT: 01/13/25 1500 Bottle Hop: Procedure Note Donotuseinterpreter, Image - 01/13/2025 [place] [address] XRay Report Signed Patient: Jensen DavisMR#: [id number] : 1960cct:[id number] Age/Sex: 64 / MADM Date: 01/13/25 Loc: [facility] Attending Dr: Charleen QUINTERO Ordering Physician: Charleen Bear Date of Service: 01/13/25 Procedure(s): XR chest 2V Accession Number(s): [id number] cc: Lilli Brady MD; [facility] MACHINE LAY OUT WORKER Reason for Exam: 64 y.o male with [...] 01/13/25 1520 DD/ 1438 TD/TT: 01/13/25 1500 Bottle Hop: [facility] MACHINE LAY OUT WORKER IMG XR PROCEDURES Final Resul t * Hm Colonoscopy (10/31/2024 11:59 AM EDT) Historical Provider HEALTH MAINTENANCE Final Result * Hepatitis C Antibody with Reflex to HCV, RNA, Quantitative, Real-Time PCR (05/07/2024 3:24 PM EDT) Hepatitis C Antibody Nonreactive Nonreactive [facility] Comment:Antibodies to HCV no t detected; does not exclude early acuteHCV infection. Blood Venous blood specimen / Unknown 05/07/2024 3:24 PM EDT 05/07/2024 6:34 PM EDT Lilli Brady MD LAB BLOOD ORDERABLES Final Result [facility] [address] [place] [address] [phone] * (ABNORMAL) Lipid Panel, Standard (05/07/2024 3:24 PM EDT) Triglycerides 204(H) <150 mg/dL [facility] Comment:Desirable Triglyceri de: less than 150 mg/dLBorderline High Triglyceride 150-199 mg/dLHigh Triglyceride: 200-499 mg/dLVery High Triglyceride: greater than or equal to 5OO mg/dL Cholesterol 190 <200 mg/dL [facility] Comment:Desirable Cholestero l: less than 200 mg/dLBorderline High Cholesterol: 200-239 mg/dLHigh Cholesterol: greater than 239 mg/dL LDL Cholesterol Calculated 93 <100 mg/dL [facility] Comment:Desirable LDL: less than 100 mg/dLNear Optimal/Above Optimal LDL: 110- 129 mg/dLBorderline High LDL: 130-159 mg/dLHigh LDL: 160-189 mg/dLVery High LDL: greater than or equal to 190 mg/dL HDL Cholesterol 57 >40 mg/dL [facility] Comment:Desirable HDL: great er than 40 mg/dL Note: This HDL assay may give artificially low results in patients with liver disease. Blood Venous blood specimen / Unknown 05/07/2024 3:24 PM EDT 05/07/2024 6:34 PM EDT Lilli Brady MD LAB BLOOD ORDERABLES Final Result [facility] [address] [place] [address] [phone] from Last 3 Months or Most Recently Relevant to Health [place] [id number] [facility] - [facility] FULL (MEDICAID) Advance Directives Documents on File Type Date Recorded Patient Concrete Boom Operator Expl anation Advance Directives and Livin g Will 04/27/2023 2:37 PM HCP Care Teams Drilling Contractor Relationship Specialty Start Date End Date Lilli Brady MD [address] [place] [id number] PCP - General Internal Medicine 03/30/17
--- OUTSIDE RECORDS SUMMARY | 2025-01-13 18:13 | XMS_ITS | Encounter Summary ---
Author Organization [employer] Address [address] [facility] [address] [place] [address] Care Team Providers Care Nurse Licensed Practical Name Role Phone Lilli Brady MD Primary Care Provider [phone] Encounter Details Date Type Department Care Team (Late st Contact Info) Description 10/31/2024 Orders Only [facility] [address] [place] [address] Provider, MD Ricardo Social History Tobacco Use Types Packs/Day Years [...] is your housing situation today? I have litzytosin wheeler 05/07/[address] you [...] Description 06/23/2025 1:30 PM EDT Office Visit [facility] [address] [place] [address] Dru, Luiza [address] [place] [address] documented as of this encounter Procedures Procedure Name Priority Date/Time Associated Diagnosis Comments HM COLONOSCOPY Routine 10/31/2024 11:59 AM EDT documented in this encounter Results * Hm Colonoscopy (10/31/2024 11:59 AM EDT) us Historical Provider HEALTH MAINTENANCE Final Result documented in this encounter Visit Diagnoses Not on filedocumented in this encounter Additional Health Concerns Assessment Noted Time PHQ-9 Depression Total Score: 0 05/08/19 25 2:53 PM EDT documented as of this encounter Care Teams Nurse Licensed Practical Relationship Specialty Start Date End Date Lilli Brady MD [address] [place] [id number] PCP - General Internal Medicine 03/30/17 documented as of this encounter
--- OUTSIDE RECORDS SUMMARY | 2025-01-13 18:13 | XMS_ITS | Encounter Summary ---
Author Organization [employer] Address [address] [facility] [address] 7[address] [place] [address] Care Team Providers Care Pathologist Assistant Name Role Phone Lilli Brady MD Primary Care Provider [phone] Encounter Details Date Type Department Care Team (Late st Contact Info) Description 01/13/2025 Results Follow-Up [facility] [address] [place], [place] [phone] [facility] [address] [place], [place] [phone] XR Chest 2 Views Social History Tobacco Use Types Packs/Day Years [...] Description 06/23/2025 1:30 PM EDT Office Visit [facility] [address] [place] [address] Dru, Luiza [address] [place] [address] documented as of this encounter Visit Diagnoses Not on filedocumented in this encounter Additional Health Concerns Assessment Noted Time PHQ-9 Depression Total Score: 0 05/08/19 25 2:53 PM EDT documented as of this encounter Care Teams Pathologist Assistant Relationship Specialty Start Date End Date Lilli Brady MD [address] [place] [address] PCP - General Internal Medicine 03/30/17 documented as of this encounter
== END 2025-01-13 13:30 | disposition home or self-care (01) ==
LOC: HO.HHCX 13:29
PROVIDERS: PCP Internal Medicine; Visit Provider Registered Nurse
DX: R05.3 Chronic cough (principal)
CPT/HCPCS: 71046

== ENCOUNTER → 2025-01-13 14:19 | Outpatient (BNV) | payer MEDICARE, MEDICAID, SELFPAY | PROVIDERS: PCP Internal Medicine; Visit Provider Radiology Diagnostic Radiology | DX: R05.3 Chronic cough (principal) | CPT/HCPCS: 71046 ==